=== PATIENT | female | born 1955 | race Caucasian/White ===

== ENCOUNTER → 2016-09-20 | Outpatient (CLI) | payer OTHER | LOC: HEART 5 09-16 08:30 | DX: R06.02 Shortness of breath (principal); F17.210 Nicotine dependence, cigarettes, uncomplicated; R94.2 Abnormal results of pulmonary function studies | CPT/HCPCS: 93306 ==

== ENCOUNTER 2021-04-30 16:00 | Emergency (ER) | payer OTHER ==
[~2021-04-30 16:00] MED LIST: BACTRIM DS TAB1 EACH PO; CLEOCIN HCL300 MG PO; PYRIDIUM100 MG PO; VIBRAMYCIN100 MG PO
[2021-04-30 18:31] LABS: HEMOGLOBIN 13.5 gm/dl (12.3-15.3); RED BLOOD COUNT 4.27 M/UL (4.00-5.10); WHITE BLOOD COUNT 10.3 K/UL (4.5-11.0)
[2021-04-30 18:44] LABS: BUN/CREATININE RATIO 24 (0-10)
== END 2021-04-30 20:50 | disposition home or self-care (01) ==
LOC: ER1 16:00
PROVIDERS: Nurse Practitioner
DX: R53.83 Other fatigue (principal); F17.210 Nicotine dependence, cigarettes, uncomplicated; I10 Essential (primary) hypertension; R53.1 Weakness; G89.29 Other chronic pain; M25.559 Pain in unspecified hip; Z88.0 Allergy status to penicillin; Z88.1 Allergy status to other antibiotic agents
CPT/HCPCS: 72170; 80048; 81001; 85025; 99284